=== PATIENT | male | born 1975 | race African-American/Black ===

== ENCOUNTER 2019-01-15 17:53 | Emergency (ER) | payer OTHER ==
--- NOTE | 2019-01-15 19:30 | RAD ---
RIGHT HAND THREE VIEW 01/15/19 HISTORY: Fall. Injury. COMPARISON: None. FINDINGS: There is a mildly comminuted fracture of the second metacarpal neck. Remainder of the digits are norm al. IMPRESSION: Mildly comminuted fracture second metacarpal neck. POS: HOME
--- NOTE | 2019-01-15 19:31 | RAD ---
RIGHT WRIST THREE VIEW 01/15/19 HISTORY: Fall. Injury. COMPARISON: None. FINDINGS: The wrist is intact. Second metacarpal neck fracture. Small subcortical cyst formation in the medial margin of the lunate. IMPRESSION: Second metacarpal neck fracture. POS: HOME
[2019-01-15] MEDS ORDERED: HYDROcodone/Acetaminophen 5/325 mg Tablet ONE (20:34)
== END 2019-01-15 20:40 | disposition home or self-care (01) ==
LOC: ERS 17:53 → EEVIPCON 17:53 → ERS 20:40
DX: S62.330A Displaced fracture of neck of second metacarpal bone, right hand, initial encounter for closed fracture (principal); J45.909 Unspecified asthma, uncomplicated; F31.9 Bipolar disorder, unspecified; F41.9 Anxiety disorder, unspecified; F17.210 Nicotine dependence, cigarettes, uncomplicated; Z79.51 Long term (current) use of inhaled steroids; W18.30XA Fall on same level, unspecified, initial encounter
CPT/HCPCS: 29125

== ENCOUNTER 2019-02-18 11:23 | Observation (INO) | payer OTHER ==
[2019-02-18 13:06] LABS: #Eosinphils 0.1 thou/uL (0.0-0.7); #Lymphocytes 1.9 thou/uL (1.20-3.40); #Monocytes 0.4 thou/uL (0.11-0.59); #Neutrophils 1.4 thou/uL (1.40-6.50); %Basophils 0.3 % (0.0-1.0); %Eosinophils 3.2 % (0.0-10.0); %Lymphocytes 48.7 % (21.0-51.0); %Neutrophils 36.8 % (42.0-75.0); Mean Corpuscular HGB CONC 32.6 g/dL (32.0-36.0); Mean Corpuscular Hemoglobin 30.6 pg (27.0-31.0); Mean Corpuscular Volume 93.7 fL (78.0-98.0); Mean Platelet Volume 6.8 fL (7.4-10.4); Platelet Count 200 thou/uL (130-400); RBC Distribution Width 12.2 % (11.5-14.5); White Blood Cell (WBC) Count 3.9 thou/uL (4.8-10.8)
[2019-02-18 13:13] LABS: Bacteria/HPF None Seen HPF (None Seen); Bilirubin Negative (Negative); Blood, Urine Negative (Negative); Clarity Clear (Clear); Glucose, Urine (Dipstick) Normal (Negative); Leukocyte Negative Leu/uL (Negative); Nitrite Negative (Negative); Protein, Urine (Dipstick) 20 mg/dL (Neg-Trace); RBC/HPF 0-3 HPF (0-3); Squamous Epithelial None Seen HPF (0-3); Urobilinogen Normal mg/dL (Less than 2); WBC/HPF 0-3 HPF (0-3)
[2019-02-18 13:19] LABS: Urine Culture Reflex No No
[2019-02-18] MEDS ORDERED: diphenhydrAMINE 50 MG/ML VIAL ONE (14:22)
[2019-02-18] MEDS ORDERED: Dexamethasone 20 MG/5 ML VIAL ONE (14:22)
[2019-02-18] MEDS ORDERED: PROPOFOL 200 MG/20 ML VIAL ONE (14:22)
[2019-02-18] MEDS ORDERED: Ondansetron PF 4 MG/2 ML Vial ONE (14:22)
[2019-02-18] MEDS ORDERED: Ketorolac Tromethamine 30 MG/ML VIAL ONE (14:22)
[2019-02-18] MEDS ORDERED: Bupivacaine PF 0.5% 30 ML VIAL ONE (17:52)
[2019-02-18] MEDS ORDERED: Bacitracin Zinc Ointment 30 gm TUBE ONE (17:53)
[2019-02-18] MEDS ORDERED: Sodium Chloride 0.9% 10 ML ONE (17:53)
[2019-02-18] MEDS ORDERED: Fentanyl 100 MCG/2 ML VIAL ONE ×2 (19:14→21:47)
[2019-02-18] MEDS ORDERED: Promethazine HCl 25 MG/ML VIAL SLOW IVP PRN (20:50)
[2019-02-18] MEDS ORDERED: Ondansetron HCl/PF 4 MG/2 ML Vial IVP PRN ×2 (20:50)
[2019-02-18] MEDS ORDERED: Promethazine HCl 25 MG/ML VIAL IM PRN ×3 (20:50→21:08)
[2019-02-18] MEDS ORDERED: Meperidine HCl/PF 25 MG/ML VIAL SLOW IVP PRN (20:50)
[2019-02-18] MEDS ORDERED: PACU-Morphine 4MG/ML VIAL SLOW IVP PRN (20:50)
[2019-02-18] MEDS ORDERED: Milk Of Magnesia 30 ML UDCUP PO PRN (21:08)
[2019-02-18] MEDS ORDERED: Ondansetron PF 4 MG/2 ML Vial IV PRN (21:08)
[2019-02-18] MEDS ORDERED: traMADol HCl 50 MG TAB PO PRN (21:08)
[2019-02-18] MEDS ORDERED: Fentanyl 100 MCG/2 ML VIAL SLOW IVP PRN (21:08)
[2019-02-18] MEDS ORDERED: Morphine 4 MG/ML VIAL SLOW IVP PRN (21:08)
[2019-02-18] MEDS ORDERED: HYDROcodone/Acetaminophen 5/325 mg Tablet PO PRN (21:08)
[2019-02-18] MEDS ORDERED: Bisacodyl 10 MG SUPP PR PRN (21:08)
[2019-02-18] MEDS ORDERED: Acetaminophen 325 MG TAB PO PRN (21:08)
[2019-02-18] MEDS ORDERED: Meperidine HCl/PF 25 MG/ML VIAL IM PRN (21:11)
[2019-02-18] MEDS ORDERED: Communication Order-Pharmacy FS SCH (21:15)
--- NOTE | 2019-02-18 21:19 | RAD ---
Intraoperative fluoroscopic imaging, right hand Clinical history: ORIF right hand FINDINGS: There is plate and screw overlying the second metacarpal with underlying fracture deformity . Osseous detail is limited. IMPRESSION: Intraoperative fluoroscopic imaging for plate and screw fixation of the distal second met acarpal. Transcribed Date/Time: 02/18/2019 9:44 PM
[2019-02-18] MEDS ORDERED: Vancomycin HCl 1 GM in Premix Bag 1 BAG IVPB SCH (23:00)
[2019-02-18] MEDS: Ketorolac Tromethamine 30 MG/ML VIAL IVP SCH (23:32)
[2019-02-19 01:19] VITALS: BMI 20.5
[2019-02-19] MEDS: Ketorolac Tromethamine 30 MG/ML VIAL IVP SCH ×2 (05:45→12:22)
[2019-02-19] MEDS ORDERED: TETANUS AND DIPHTHERIA TOX/PF 0.5 ML DISP.SYRIN IM SCH (09:00)
[2019-02-19] MEDS ORDERED: Aspirin 81 mg Enteric Coated Tablet PO SCH (09:00)
[2019-02-19 11:16] VITALS: BP 119/73; TEMP 99
--- NOTE | 2019-02-21 09:56 | OP ---
DATE OF PROCEDURE: 02/18/2019 PREOPERATIVE DIAGNOSIS: Right index finger metacarpal fracture with malunion. POSTOPERATIVE DIAGNOSES: 1. Right index finger metacarpal fracture with malunion. 2. Angular malunion, of almost 20 degrees, index finger rotated over the long finger. PROCEDURES PERFORMED: 1. Right index finger malunion correction, open. 2. Right index finger metacarpal fracture open reduction and internal fixation with Synthes plate. COMPLICATIONS: None. TOURNIQUET TIME: 45 minutes. ESTIMATED BLOOD LOSS: 40 mL. SPECIMEN REMOVED: None. FINDINGS: Malrotation with malunion. DESCRIPTION OF PROCEDURE: After successful general endotracheal anesthesia by [place] Anesthesia, the limb was prepped and draped. We then gave the patient 50 mL of 0.5% Marcaine along the zigzag incision outlined centered over the fracture. It was carried through skin and subcutaneous tissue and identified the interval between the extensor tendons, which was entered, carried through skin and subcutaneous tissue, very thick periosteum, which because of the fracture location forced into the joint by 5 mm, and then at this point we did a subperiosteal dissection to expose the fracture. It was partially healed but healed in malrotation, so we used a [place] blade to find the plane of the fracture, disrupted it completely creating a fresh fracture, curetted both ends, irrigated it and then once we had fresh bleeding in the bone, rotated back in place and held it with a large tenaculum clamp. We then measured a T-plate with 3 holes subarticular just proximal to the entrance of the collaterals making it out of the capsular reflection. We then drilled, measured, and screwed appropriate size screws until we maintained anatomic reduction and have the clamp removed. We removed the clamp and rotation fully corrected on x-ray. There was no gap seen unlike what had been seen in preop x-rays. The patient then had the tourniquet deflated. We repaired the deep periosteum over the fracture, which included the tendon surface underneath it with a running 2-0 Vicryl and there was excellent apposition. We freed the tendon of the extensor pollicis longus somewhat and then the patient left the operating room after we deflated the tourniquet, obtained hemostasis, closed the subcutaneous tissue with a running 3-0 Monocryl and the skin with a 4-0 nylon, having no anesthetic or operative complication. Job ID: [id number]
== END 2019-02-19 14:45 ==
LOC: EEVIPCON → SDC 11:23 → SURG A 21:17
PROVIDERS: ADMIT Orthopaedic Surgery Hand Surgery; ATTEND Orthopaedic Surgery Hand Surgery
PROC: 0PSP04Z Reposition Right Metacarpal with Internal Fixation Device, Open Approach (ICD-10-PCS; principal; 2019-02-19)
DX: S62.300 Unspecified fracture of second metacarpal bone, right hand (principal); J45.909 Unspecified asthma, uncomplicated
CPT/HCPCS: 76000; 81001; 85025; 90714; 96374; 96376; C1713; G0378; J0690; J1100; J1200; J1885; J2405; J2704; J3010; J3370; J3490; S0020

== ENCOUNTER → 2019-06-28 | Day surgery (SDC) | payer OTHER ==
[~2019-06-28] MED LIST: Bacitracin Zinc Ointment 30 gm TUBE ONE; Betamet Acet/Betamet Na Ph 30 MG/5 ML VIAL ONE; Bupivacaine PF 0.5% 30 ML VIAL ONE; Fentanyl 100 MCG/2 ML VIAL ONE; HYDROcodone/Acetaminophen 5/325 mg Tablet ONE; Ketorolac Tromethamine 30 MG/ML VIAL ONE; Lidocaine 1% PF 5 ML VIAL ONE; Meperidine HCl/PF 25 MG/ML VIAL ONE; Midazolam HCl 2 mg/2 ml Vial ONE; PROPOFOL 200 MG/20 ML VIAL ONE; Sodium Chloride 0.9% 0 ML ONE; Sodium Chloride 0.9% 10 ML ONE; ePHEDrine/0.9% NaCl/PF SYRINGE 50 mg/10 ml ONE
[2019-06-28 13:39] LABS: Hemoglobin 13.9 g/dL (14.0-18.0); Mean Corpuscular HGB CONC 33.2 g/dL (32.0-36.0); Mean Corpuscular Hemoglobin 30.7 pg (27.0-31.0); Mean Corpuscular Volume 92.5 fL (78.0-98.0); Mean Platelet Volume 6.4 fL (7.4-10.4); Platelet Count 226 thou/uL (130-400); RBC Distribution Width 12.1 % (11.5-14.5); Red Blood Cell (RBC) Count 4.51 mill/uL (4.70-6.10)
[2019-06-28 14:10] LABS: Band 1 % (5-11); Eosinophils 5 % (0-10); Lymphocytes 53 % (21-51); MDiff Complete? YES; Monocytes 5 % (0-10); Neutrophil 31 % (42-75); Platelet Morphology Comment Appears Adequate; RBC Morphology Normal; Reactive Lymphocytes 3 % (0-10)
--- NOTE | 2019-06-28 22:45 | RAD ---
Exam: Right finger 2 views: HISTORY: Hardware removal FINDINGS: There are defects from previous metal plate stabilization of the distal aspect of the second metacarp al evidence for hardware removal. IMPRESSION: Evidence for hardware removal.
--- NOTE | 2019-06-29 10:43 | OP ---
DATE OF PROCEDURE: 06/28/2019 PREOPERATIVE DIAGNOSES: 1. Right index finger extensive tendon to skin, tendon to fracture, and tendon for plate and bone adhesions. 2. Right index finger dislodged painful screw x1. 3. Right index finger metacarpophalangeal joint, 45-degree flexion loss without intrinsic tightness. POSTOPERATIVE DIAGNOSES: 1. Right index finger extensive tendon to skin, tendon to fracture, and tendon for plate and bone adhesions. 2. Right index finger dislodged painful screw x1. 3. Right index finger metacarpophalangeal joint, 45-degree flexion loss without intrinsic tightness. PROCEDURE PERFORMED: 1. C-arm supervision under fluoroscopy. 2. Removal of painful deep implant plate against the bone metacarpal index finger to the joint line. 3. Right index finger metacarpophalangeal joint capsulectomy with synovectomy. 4. Right index finger extensor tenotomy, extensor digitorum communis and extensor indicis proprius. 5. Right index finger extensor digitorum communis, extensor indicis proprius tenolysis. 6. Painful scar excision. COMPLICATIONS: None. ESTIMATED BLOOD LOSS: 20 mL. TOURNIQUET TIME: 24 minutes. OTHER FINDINGS: 6 mm persistent partial extensor indicis proprius erosion secondary to the screw contact. DESCRIPTION OF PROCEDURE: After successful general endotracheal anesthesia, the limb was prepped and draped. Time-out was done appropriately. The scar was keloid stage II, almost 4 mm thick and it was excised, then we removed from the field. Through the underlying disconnected tissue, we slowly dissected until we came to level of the tendon where there was very severe tendon, synovial thickening as well as very tight joint capsule. We worked on both sides of the retinaculum, i.e., extensor tendon index finger and was able to lift up enough to complete the release and the dorsal metacarpophalangeal joint until we could almost see 90 degrees of flexion. Then, we performed the same procedure elsewhere. Once we had done the capsulectomy and removed the painful deep implant, we performed an extensor tendon tenotomy where one screw, one protruding, had been rubbing against the tendon and caused some early fraying. We saw that in order to get to the plate, the extensive skin scar tendon and tendon to periosteum adhesions all these were excised using [place] blade sharply with no exception. Now the screws were all removed, the visualization no longer indicated or available and we released the tourniquet. We did not have to repair the retinalcum because we spared it but we were able to obtain hemostasis, closed the wound with interrupted 3-0 Monocryl and then finally full nylon interrupted simple pattern for the patient. Job ID: [id number]
== END ==
LOC: EEVIPCON → SDC 13:17
PROVIDERS: ATTEND Orthopaedic Surgery Hand Surgery
DX: T84.84XA Pain due to internal orthopedic prosthetic devices, implants and grafts, initial encounter (principal); T84.220A Displacement of internal fixation device of bones of hand and fingers, initial encounter; Y79.2 Prosthetic and other implants, materials and accessory orthopedic devices associated with adverse incidents; J45.909 Unspecified asthma, uncomplicated
CPT/HCPCS: 36415; 76000; 85025; 88304; J0690; J0702; J1885; J2001; J2175; J2250; J2704; J3010; J3490; S0020

== ENCOUNTER 2019-07-17 14:40 | Emergency (ER) | END 2019-07-17 15:18 | disposition home or self-care (01) | LOC: ERS 14:40 | DX: N48.1 Balanitis (principal); J45.909 Unspecified asthma, uncomplicated; F41.9 Anxiety disorder, unspecified; F31.9 Bipolar disorder, unspecified; F17.210 Nicotine dependence, cigarettes, uncomplicated | CPT/HCPCS: 99283 ==

== ENCOUNTER 2019-09-02 00:23 | Emergency (ER) | payer SELFPAY ==
--- NOTE | 2019-09-02 07:53 | RAD ---
XR Hand Rt 3 View STANDARD History: Injury Comparison: Radiograph January 2019 Findings: Healing fracture of the second metacarpal neck with cortical thickening and there appear to be screw tracts. No acute displaced fracture or malalignment. Mild interphalangeal joint space narrowing. Mild medial subluxation of the proximal carpal row. Impression: 1. Healing index finger metacarpal neck fracture. 2. Subtle cortical lucency proximal phalanx base of the thumb and sequela of old ulnar collateral lig ament injury. Exam 3. Mild medial subluxation the proximal carpal row.
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
== END 2019-09-02 01:17 ==
LOC: ERS 00:23
DX: S62.330A Displaced fracture of neck of second metacarpal bone, right hand, initial encounter for closed fracture (principal); S61.251A Open bite of left index finger without damage to nail, initial encounter; J45.909 Unspecified asthma, uncomplicated; F31.9 Bipolar disorder, unspecified; F41.9 Anxiety disorder, unspecified; F17.210 Nicotine dependence, cigarettes, uncomplicated; Y04.1XXA Assault by human bite, initial encounter
CPT/HCPCS: 26600